=== PATIENT | female | born 1945 | race Caucasian/White ===

== ENCOUNTER → 2024-07-19 | Outpatient (CLI) | payer OTHER, SELFPAY ==
[2024-07-19 12:09] LABS: Collection Type, Urine Clean Catch
[2024-07-19 12:26] LABS: Basophils # (Auto) 0.1 Thou/mm3 (0.0-0.2); Basophils % (Auto) 1 % (0-2.5); Eosinophils # (Auto) 0.4 Thou/mm3 (0.0-0.5); Eosinophils % (Auto) 3 % (0-10); Hematocrit 36.9 % (36.0-46.0); Hemoglobin 12.7 g/dL (12.0-16.0); Immature Granulocytes % (Auto) 1 % (0-0); Immature Granulocytes Auto 0.05 Thou/mm3 (0.00-0.00); Lymphocytes # (Auto) 1.5 Thou/mm3 (1.0-4.8); Lymphocytes % (Auto) 15 % (10-50); Mean Corpuscular HGB Conc 34.4 g/dl (31.0-37.0); Mean Corpuscular Hemoglobin 30.6 pg (25.0-35.0); Mean Corpuscular Volume 89 fL (80-100); Monocytes % (Auto) 9 % (0-12); Neutrophils # (Auto) 7.6 Thou/mm3 (1.8-7.7); Neutrophils % (Auto) 72 % (37-80); Nucleated Red Blood Cell % 0 /100 WBC (0); Platelet Count 291 Thou/mm3 (140-440); RDW Standard Deviation 39.2 fL (36.4-46.3); Red Blood Count 4.15 Miln/mm3 (4.00-5.20); White Blood Count 10.6 Thou/mm3 (3.6-11.0)
[2024-07-19 12:31] LABS: Bilirubin,Urine Negative (Negative); Blood,Urine Negative (Negative); Clarity,Urine Clear (Clear/Hazy); Color,Urine Lt-Yellow (Lt Yel-Yel); Glucose, Urine Negative (Negative); Ketones,Urine Negative (Negative); Leukocyte Esterase,Urine Negative (Negative); Nitrite,Urine Negative (Negative); PH,Urine 6.5 (5.0-7.0); Protein,Urine Negative (Neg - Trace); RBC,Urine 1 /hpf (0-3); Specific Gravity,Urine 1.011 (1.001-1.035); Squamous Epithelial Cell,Urine < 1 /hpf (0-5); Urobilinogen,Urine Negative mg/dL (0.0-1.0); WBC,Urine < 1 /hpf (0-5)
[2024-07-19 12:43] LABS: Vitamin B12 1229 pg/mL (211-911); Vitamin D 25 Hydroxy Total 40.2 ng/mL (7.3-40.2)
[2024-07-19 12:44] LABS: Alanine Aminotransferase 23 U/L (10-49); Albumin, Serum 4.6 gm/dL (3.4-4.8); Albumin/Globulin Ratio 1.9 (1.2-2.2); Alkaline Phosphatase 114 U/L (46-116); Anion Gap 9 (7-16); Aspartate Amino Transferase 22 U/L (0-34); BUN/Creatinine Ratio 22 Ratio (12-20); Bilirubin,Total 0.5 mg/dL (0.3-1.2); Blood Urea Nitrogen 24 mg/dL (9-23); Calcium 9.6 mg/dL (8.3-10.6); Calcium (Corrected) 9.6 mg/dL (8.5-10.1); Carbon Dioxide 25.1 mMol/L (20.0-31.0); Cardiac Risk Estimate 2.3 RATIO (3.7-5.6); Chloride 104 mMol/L (98-107); Cholesterol 129 mg/dL (132-200); Creatinine (Component) 1.1 mg/dL (0.6-1.3); Globulin 2.4 gm/dL (2.3-3.5); Glucose 89 mg/dL (74-106); HDL Cholesterol 55 mg/dL (40-60); LDL Cholesterol,Calculated 63 mg/dL (0-130); Osmolality,Calculated 278 (275-295); Potassium 4.8 mMol/L (3.4-5.1); Sodium 138 mMol/L (136-145); Thyroid Stimulating Hormone 0.95 uIU/mL (0.55-4.78); Triglycerides 57 mg/dL (30-150); eGFR 52 See Note
== END | disposition home or self-care (01) ==
LOC: COPL 10:54
PROVIDERS: PCP Family Medicine; Referring Provider Physician Assistant; Visit Provider Physician Assistant
DX: Z00.00 Encounter for general adult medical examination without abnormal findings (principal); I10 Essential (primary) hypertension; E03.9 Hypothyroidism, unspecified; E78.5 Hyperlipidemia, unspecified
CPT/HCPCS: 36415; 80053; 80061; 81001; 82306; 82607; 84443; 85025

== ENCOUNTER → 2024-07-31 | Outpatient (CLI) | payer OTHER, SELFPAY ==
--- NOTE | 2024-07-31 | XR_ITS ---
Examination: Screening digital mammography, bilateral Computer aided detection 3-D breast Tomosynthesis, bilateral Date and time of exam: July 31, 2024 1114 hours Compared to mammograms dating to May 30, 2018 Indication: Screening Technique: Nonmagnified MLO, CC views of the breasts to been obtained, reconstructed from 3-D Tomosynthesis images. R2 computer aided detection program utilized for evaluation of suspicious masses and/or abnormal calcifications. 3-D Tomosynthesis images obtained. Findings: The breasts are heterogeneously dense, which may obscure small masses 8 mm focal asymmetry upper outer left breast anterior depth Benign calcifications Impression: BI-RADS Category 0: Incomplete: Need additional imaging evaluation 8 mm focal asymmetry upper outer left breast anterior depth Recommend follow-up spot tomographic views of this nodule as well as left breast sonography to complete the workup.
== END | disposition home or self-care (01) ==
LOC: CDIM 11:05
PROVIDERS: PCP Physician Assistant; Referring Provider Physician Assistant; Visit Provider Physician Assistant
DX: Z12.31 Encounter for screening mammogram for malignant neoplasm of breast (principal); R92.8 Other abnormal and inconclusive findings on diagnostic imaging of breast; N64.89 Other specified disorders of breast
CPT/HCPCS: 77063; 77067

== ENCOUNTER → 2024-09-07 | Outpatient (CLI) | payer OTHER, SELFPAY ==
--- NOTE | 2024-09-07 10:33 | XR_ITS ---
Examination: Sinus series 3 views Technique: Marcelle Reno lateral sinus series 3 views Exam date and time: August 30, 2024 1045 hrs. Indications: Sinus pressure and pain months Findings: Opacity in the frontal ethmoid air cells No retention cysts No fluid levels Impression: Chronic frontal ethmoid sinusitis
[2024-09-07 12:02] LABS: Basophils # (Auto) 0.1 Thou/mm3 (0.0-0.2); Basophils % (Auto) 1 % (0-2.5); Eosinophils # (Auto) 0.3 Thou/mm3 (0.0-0.5); Eosinophils % (Auto) 4 % (0-10); Hematocrit 39.6 % (36.0-46.0); Hemoglobin 13.2 g/dL (12.0-16.0); Immature Granulocytes % (Auto) 0 % (0-0); Immature Granulocytes Auto 0.03 Thou/mm3 (0.00-0.00); Lymphocytes # (Auto) 1.6 Thou/mm3 (1.0-4.8); Lymphocytes % (Auto) 20 % (10-50); Mean Corpuscular HGB Conc 33.3 g/dl (31.0-37.0); Mean Corpuscular Hemoglobin 29.5 pg (25.0-35.0); Mean Corpuscular Volume 88 fL (80-100); Monocytes # (Auto) 0.8 Thou/mm3 (0.0-0.8); Monocytes % (Auto) 10 % (0-12); Neutrophils # (Auto) 5.1 Thou/mm3 (1.8-7.7); Neutrophils % (Auto) 65 % (37-80); Nucleated Red Blood Cell % 0 /100 WBC (0); Platelet Count 269 Thou/mm3 (140-440); RDW Standard Deviation 41.6 fL (36.4-46.3); Red Blood Count 4.48 Miln/mm3 (4.00-5.20); White Blood Count 7.9 Thou/mm3 (3.6-11.0)
[2024-09-07 12:14] LABS: Alanine Aminotransferase 19 U/L (10-49); Albumin, Serum 4.5 gm/dL (3.4-4.8); Alkaline Phosphatase 88 U/L (46-116); Anion Gap 8 (7-16); Aspartate Amino Transferase 17 U/L (0-34); BUN/Creatinine Ratio 24 Ratio (12-20); Bilirubin,Total 0.4 mg/dL (0.3-1.2); Blood Urea Nitrogen 29 mg/dL (9-23); Calcium 9.5 mg/dL (8.3-10.6); Calcium (Corrected) 9.5 mg/dL (8.5-10.1); Carbon Dioxide 26.1 mMol/L (20.0-31.0); Chloride 106 mMol/L (98-107); Creatinine (Component) 1.2 mg/dL (0.6-1.3); Globulin 2.3 gm/dL (2.3-3.5); Glucose 81 mg/dL (74-106); Osmolality,Calculated 284 (275-295); Potassium 4.8 mMol/L (3.4-5.1); Sodium 140 mMol/L (136-145); Total Protein 6.8 gm/dL (5.7-8.2); eGFR 47 See Note
== END | disposition home or self-care (01) ==
LOC: CDIM 10:30 → COPL 10:51
PROVIDERS: Referring Provider Family Medicine; Visit Provider Family Medicine
DX: J01.00 Acute maxillary sinusitis, unspecified (principal); J32.2 Chronic ethmoidal sinusitis
CPT/HCPCS: 36415; 70220; 80053; 85025

== ENCOUNTER → 2024-09-25 | Outpatient (CLI) | payer OTHER, SELFPAY | END | disposition home or self-care (01) | LOC: SLDO 15:34 | PROVIDERS: PCP Physician Assistant; Referring Provider Physician Assistant; Visit Provider Physician Assistant | DX: J01.90 Acute sinusitis, unspecified (principal) | CPT/HCPCS: 87070; 87205 ==

== ENCOUNTER → 2024-11-07 | Outpatient (CLI) | payer OTHER, SELFPAY ==
--- NOTE | 2024-11-07 17:00 | XR_ITS ---
Examination: CT maxillofacial, without intravenous contrast. 2-D sagittal reconstructions. 3-D reconstructions. Date and time of exam:November 07, 2024 1717 hours INDICATIONS: Sinus pressure and pain 2 months CTDI: vol (mGy):7.44 DLP: (mGycm):111 Technique: Multiple axial images of maxillofacial region, 3.0 mm slice thickness. 2-D sagittal and coronal reconstructions. 3-D reconstructions. Low dose protocols were performed. One or more of the following dose reduction techniques were used; automated exposure control, adjustment of the mA and/or KV according to patient size, use of iterative reconstruction technique. Findings: Mucosal thickening up to 3 mm the frontal air cells Moderate mucosal thickening ethmoid air cells. No occlusion of estimated complexes Maxillary antra are clear Sphenoid air cells are clear Symmetrical mastoid aeration Negative for otitis media No nasopharyngeal mass Deviation nasal septum into the left 3 mm The optic globes exhibit symmetry Calcified left frontal convexity mass at least 21 x 18 mm IMPRESSION: Mild chronic sinusitis Calcified left frontal convexity mass, likely meningioma, 21 x 18 mm, recommend brain MRI MRA follow-up, pre and postcontrast.
== END | disposition home or self-care (01) ==
LOC: CCTX 16:56
PROVIDERS: PCP Family Medicine; Referring Provider Physician Assistant; Visit Provider Physician Assistant
DX: J32.9 Chronic sinusitis, unspecified (principal); R90.89 Other abnormal findings on diagnostic imaging of central nervous system
CPT/HCPCS: 70486

== ENCOUNTER → 2024-12-18 | Outpatient (CLI) | payer OTHER, SELFPAY ==
[2024-12-18 11:48] LABS: Alanine Aminotransferase 15 U/L (10-49); Albumin, Serum 4.2 gm/dL (3.4-4.8); Albumin/Globulin Ratio 1.9 (1.2-2.2); Alkaline Phosphatase 122 U/L (46-116); Anion Gap 10 (7-16); BUN/Creatinine Ratio 19 Ratio (12-20); Bilirubin,Total 0.5 mg/dL (0.3-1.2); Blood Urea Nitrogen 23 mg/dL (9-23); Calcium 9.2 mg/dL (8.3-10.6); Calcium (Corrected) 9.2 mg/dL (8.5-10.1); Carbon Dioxide 24.7 mMol/L (20.0-31.0); Cardiac Risk Estimate 2.3 RATIO (3.7-5.6); Chloride 107 mMol/L (98-107); Cholesterol 122 mg/dL (132-200); Creatinine (Component) 1.2 mg/dL (0.6-1.3); Globulin 2.2 gm/dL (2.3-3.5); Glucose 100 mg/dL (74-106); HDL Cholesterol 54 mg/dL (40-60); LDL Cholesterol,Calculated 54 mg/dL (0-130); Osmolality,Calculated 286 (275-295); Potassium 4.5 mMol/L (3.4-5.1); Sodium 142 mMol/L (136-145); Thyroid Stimulating Hormone 2.18 uIU/mL (0.55-4.78); Total Protein 6.4 gm/dL (5.7-8.2); Triglycerides 70 mg/dL (30-150); eGFR 46 See Note
== END | disposition home or self-care (01) ==
LOC: COPL 10:42
PROVIDERS: PCP Physician Assistant; Referring Provider Physician Assistant; Visit Provider Physician Assistant
DX: E03.9 Hypothyroidism, unspecified (principal); I10 Essential (primary) hypertension; E78.5 Hyperlipidemia, unspecified
CPT/HCPCS: 36415; 80053; 80061; 84443

== ENCOUNTER → 2025-01-18 | Outpatient (CLI) | payer OTHER, SELFPAY ==
--- NOTE | 2025-01-18 | XR_ITS ---
Examination:Right hip AP, lateral, AP pelvis 3 views Technique: Hip AP lateral, AP pelvis, 3 views Exam date and time:January 18, 2025 1158 hours INDICATIONS: Right hip pain months FINDINGS: Bilateral mild to moderate narrowing hip joints No right or left hip fracture or dislocation Numerous pelvic surgical clips IMPRESSION: Bilateral mild to moderate hip osteoarthritis.
== END | disposition home or self-care (01) ==
PROVIDERS: PCP Family Medicine; Referring Provider Physician Assistant; Visit Provider Physician Assistant
DX: M16.0 Bilateral primary osteoarthritis of hip (principal)
CPT/HCPCS: 73502

== ENCOUNTER → 2025-02-23 | Outpatient (CLI) | payer OTHER, SELFPAY ==
--- NOTE | 2025-02-23 14:45 | XR_ITS ---
Examination: MRI right hip without intravenous contrast. Date and time of exam: February 23, 2025 1524 hours Comparison September 15, 2022 INDICATIONS: Diagnosis bilateral hip osteoarthritis, greater trochanteric bursitis, hip pain years, right hip posterior buttock and hip pain radiating down the right leg joint clicking and weakness in the right leg and swelling 5 months Technique: Multiple MRI images of the right hip hip have been obtained T1 weighted coronal sections, TR 500, TE 12 Proton density coronal fat saturated images, TR 3000, TE 71 T2-weighted coronal images, 5850, TE 104 T1-weighted axial images, TR 521, TE 12 T2-weighted axial fat suppressed images, TR 5730, TE 103. Findings: [id number] bilateral hip osteoarthritis Right hip demonstrates no marrow edema or occult fracture or bone contusion or avascular necrosis Left hip demonstrates homogeneous marrow signal No avascular necrosis involving either hip Marrow signal in the pelvis unremarkable No definite labral tears IMPRESSION: No right hip occult fracture or bone contusion marrow edema or avascular necrosis [id number] bilateral hip osteoarthritis
--- NOTE | 2025-02-23 15:30 | XR_ITS ---
Examination: MRI lumbar spine without contrast Date and time of exam: February 23, 2025 1454 hours, comparison November 28, 2014 INDICATIONS: Intermittent low back pain radiating down the right leg to the foot, weakness in the right leg several years worse last 5 months Technique: Multiple MRI axial and sagittal sections lumbar spine. Sagittal T2-weighted images, TR 3500, TE 118 T1 weighted transverse sections, TR 688 T8.5, T2-weighted sagittal sections T1 weighted sagittal sections TR 621, TE 30 T2 axial sections, TR 4, 190, TE 84. Findings: Adequate alignment lumbar vertebral bodies on the lateral view No lumbar fracture. Normal marrow signal lumbar vertebral bodies. Moderate to advanced disc narrowing L2-L3, L3-L4 Diffuse lumbar disc desiccation No spondylolisthesis L5-S1 4 mm central lumbar disc bulge extending to the right and left intervertebral foramina with mild bilateral L5 ganglionic impression L4-L5 moderate to severe overall spinal stenosis, axial image 5, 6 mm several lumbar disc bulge, facet arthropathy and thickening of ligamenta flava circumferentially narrowing the thecal sac and producing severe right L4 ganglionic compression L3-L4 5 mm left foraminal disc bulge mild left L3 ganglionic compression L2-L3 small foraminal disc bulges 2 to 3 mm L1-L2 no disc protrusion IMPRESSION: L5-S1 4 mm central lumbar disc bulge with mild bilateral L5 ganglionic compression L4-L5 moderate to severe overall spinal stenosis including severe right L4 ganglionic compression
== END | disposition home or self-care (01) ==
LOC: SMRI 14:06
PROVIDERS: PCP Family Medicine; Referring Provider Physician Assistant; Visit Provider Physician Assistant
DX: M51.370 Other intervertebral disc degeneration, lumbosacral region with discogenic back pain only (principal); M51.360 Other intervertebral disc degeneration, lumbar region with discogenic back pain only; G95.20 Unspecified cord compression; M16.0 Bilateral primary osteoarthritis of hip
CPT/HCPCS: 72148; 73721

== ENCOUNTER → 2025-03-13 | Outpatient (CLI) | payer OTHER, SELFPAY ==
[2025-03-13 11:05] LABS: Alanine Aminotransferase 13 U/L (10-49); Albumin, Serum 4.7 gm/dL (3.4-4.8); Albumin/Globulin Ratio 2.0 (1.2-2.2); Alkaline Phosphatase 136 U/L (46-116); Anion Gap 15 (7-16); Aspartate Amino Transferase 24 U/L (0-34); BUN/Creatinine Ratio 11 Ratio (12-20); Bilirubin,Total 0.6 mg/dL (0.3-1.2); Blood Urea Nitrogen 13 mg/dL (9-23); Calcium 10.1 mg/dL (8.3-10.6); Calcium (Corrected) 10.1 mg/dL (8.5-10.1); Carbon Dioxide 20.8 mMol/L (20.0-31.0); Cardiac Risk Estimate 2.6 RATIO (3.7-5.6); Chloride 104 mMol/L (98-107); Cholesterol 138 mg/dL (132-200); Creatinine (Component) 1.2 mg/dL (0.6-1.3); Globulin 2.4 gm/dL (2.3-3.5); Glucose 84 mg/dL (74-106); HDL Cholesterol 53 mg/dL (40-60); LDL Cholesterol,Calculated 70 mg/dL (0-130); Osmolality,Calculated 278 (275-295); Potassium 4.4 mMol/L (3.4-5.1); Sodium 140 mMol/L (136-145); Thyroid Stimulating Hormone 2.43 uIU/mL (0.55-4.78); Total Protein 7.1 gm/dL (5.7-8.2); Triglycerides 73 mg/dL (30-150); eGFR 46 See Note
== END | disposition home or self-care (01) ==
LOC: COPL 09:45
PROVIDERS: PCP Family Medicine; Referring Provider Physician Assistant; Visit Provider Physician Assistant
DX: E03.9 Hypothyroidism, unspecified (principal); I10 Essential (primary) hypertension; E78.5 Hyperlipidemia, unspecified
CPT/HCPCS: 36415; 80053; 80061; 84443

== ENCOUNTER → 2025-06-03 | Outpatient (CLI) | payer OTHER, SELFPAY ==
[2025-06-03 14:54] LABS: Basophils # (Auto) 0.0 Thou/mm3 (0.0-0.2); Basophils % (Auto) 1 % (0-2.5); Eosinophils # (Auto) 0.6 Thou/mm3 (0.0-0.5); Eosinophils % (Auto) 8 % (0-10); Hematocrit 36.6 % (36.0-46.0); Hemoglobin 11.9 g/dL (12.0-16.0); Immature Granulocytes Auto 0.01 Thou/mm3 (0.00-0.00); Lymphocytes # (Auto) 1.3 Thou/mm3 (1.0-4.8); Lymphocytes % (Auto) 20 % (10-50); Mean Corpuscular HGB Conc 32.5 g/dl (31.0-37.0); Mean Corpuscular Hemoglobin 28.7 pg (25.0-35.0); Mean Corpuscular Volume 88 fL (80-100); Monocytes # (Auto) 0.6 Thou/mm3 (0.0-0.8); Monocytes % (Auto) 9 % (0-12); Neutrophils # (Auto) 4.1 Thou/mm3 (1.8-7.7); Neutrophils % (Auto) 62 % (37-80); Nucleated Red Blood Cell # 0.00 Thou/mm3 (0.00-0.00); Nucleated Red Blood Cell % 0 /100 WBC (0); Platelet Count 253 Thou/mm3 (140-440); RDW Standard Deviation 43.7 fL (36.4-46.3); Red Blood Count 4.14 Miln/mm3 (4.00-5.20); White Blood Count 6.6 Thou/mm3 (3.6-11.0)
[2025-06-03 15:05] LABS: Alanine Aminotransferase 14 U/L (10-49); Albumin, Serum 4.6 gm/dL (3.4-4.8); Albumin/Globulin Ratio 1.9 (1.2-2.2); Alkaline Phosphatase 120 U/L (46-116); Anion Gap 10 (7-16); Aspartate Amino Transferase 28 U/L (0-34); BUN/Creatinine Ratio 15 Ratio (12-20); Bilirubin,Total 0.3 mg/dL (0.3-1.2); Blood Urea Nitrogen 21 mg/dL (9-23); Calcium 9.0 mg/dL (8.3-10.6); Calcium (Corrected) 9.0 mg/dL (8.5-10.1); Carbon Dioxide 25.8 mMol/L (20.0-31.0); Chloride 104 mMol/L (98-107); Creatinine (Component) 1.4 mg/dL (0.6-1.3); Globulin 2.4 gm/dL (2.3-3.5); Glucose 84 mg/dL (74-106); Osmolality,Calculated 281 (275-295); Potassium 4.4 mMol/L (3.4-5.1); Sodium 140 mMol/L (136-145); Total Protein 7.0 gm/dL (5.7-8.2); eGFR 39 See Note
== END | disposition home or self-care (01) ==
LOC: COPL 13:11
PROVIDERS: PCP Family Medicine; Referring Provider Physician Assistant; Visit Provider Physician Assistant
DX: I10 Essential (primary) hypertension (principal); E78.5 Hyperlipidemia, unspecified; E03.9 Hypothyroidism, unspecified; D51.9 Vitamin B12 deficiency anemia, unspecified
CPT/HCPCS: 36415; 80053; 85025

== ENCOUNTER 2025-06-12 14:21 | Outpatient (RCR) | payer OTHER, SELFPAY ==
--- NOTE | 2025-06-12 15:18 | CTCFLWUP_ITS ---
Patient: TALA LU : 1945 Page 8 of 10 FOLLOW UP NOTE DATE OF SERVICE: 06/12/2025 NAME: TALA LU ACCOUNT: [id number] : 1945 AGE: 79 INTERVAL HISTORY: Patient doing well. Needs mammogram . new diagnosis of dementia . 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 History of cervix cancer treated with surgery followed by chemoradiation (1989). Status post surgery, chemotherapy as well as radiation therapy Mild dementia. REASON FOR TODAY?S VISIT: This is office follow-up visit. Ms. Lu is here at [facility]. She is clinically doing very well. Denies any complaints. Denies any cough, chest pain, abdominal pain or leg cramps. Denies any weight loss or loss of appetite. Ambulating well without any help. CT of chest abdomen pelvis done on 04/07/2023, no interval metastatic disease in the chest abdomen and pelvis, suspicious for 15mm mass lateral left breast, bilateral breast US recommended. Bilateral breast US, showed BIRAD category 3: probably benign finding, 6 month left breast US to document stability of left breast nodules, (05/30/2023). Bilateral mammogram screening, was BIRAD category II: benign findings, 1 year follow up recommended, (06/03/2023). Ms. Lu denies any fevers or night sweats. DATE OF DIAGNOSIS: STAGE/TNM: TREATMENT HISTORY: Care?Plan Start?Date Cycle Day Intent HISTORY OF PRESENT ILLNESS: PREVIOUS NOTE: Tala Lu is a 79-year-old ENG speaking female with following oncology history. June 1989: Patient was diagnosed with cervix cancer. July 29, 1989: Patient had surgery followed by chemotherapy and radiation at [facility] in [place]. 01/18/2019: Patient had noncontrast MRI of the right hip due to right hip pain. MRI showed a 2.7 cm oval mass in the right inguinal subcutaneous soft tissues suggesting an enlarged lymph node. Prominent intramuscular edema and blood within the right gluteus medius muscle consistent with high-grade strain. 03/29/2019:. MRI of the pelvis without contrast was again performed. It showed a 2.4 cm soft tissue mass in the right inguinal deep subcutaneous adipose tissue which may represent a pathologic lymph node. 05/16/2019: Patient had CT of the pelvis with IV contrast which showed a 24 mm enlarged right common femoral lymph node. 05/16/2019: She had CT-guided biopsy of the right groin lymph node. Pathology showed atypical lymphoid proliferation with no definite evidence of lymphoma's or other malignancy. Patient is referred to medical oncology for further work-up. 09/07/2019: PET CT scan?Enlarging hypermetabolic right common femoral artery lymph node, 28 mm compared to [address] pelvis May 16, 2019 This lymph node is amenable to CT-guided biopsy to confirm metastatic adenopathy Hypermetabolic bilateral thyroid lobes, clinical correlation advised Small pulmonary nodules right upper and left upper lobe on the current study are smaller compared to CT chest study November 09, 2013 09/10/2019: CT scan of the abdomen and pelvis with contrast?Enlarged right common femoral lymph node, 29 mm This node is amenable to rebiopsy as clinically warranted 12/14/2019: Right groin lymph node excision biopsy? 01/10/2020: CT scan of the abdomen and pelvis with contrast? 01/15/2020: Echocardiogram?LVEF 55-60%. 01/16/2020: Bone marrow biopsy and aspiration? 01/23/2020: Patient was seen at [place]? 08/16/2020: PET CT scan? 02/06/2021: shave biopsy of the right longo? 03/11/2021: CT scan of the chest abdomen and pelvis? 09/16/2021: Ultrasound of the thyroid gland?negative for nodules. 04/07/2023: CT chest abdomen and pelvis IMPRESSION: No interval metastatic disease in the chest abdomen or pelvis Suspicious for 15 mm mass lateral left breast, recommend bilateral breast sonography diagnostic mammography follow-up 05/30/2023: Bilateral breast US Findings: Sonographic images right breast 7:00 cyst 3 x 3 mm No solid nodules Sonographic images left breast 1:00 oval mass circumscribed 4 x 4 millimeter 3:00 oval mass lobular margins 7 x 5 mm Impression: BI-RADS Category 3: Probably benign findings 6 month left breast sonogram follow-up is needed to document stability of left breast nodules described above 06/03/2023: Bilateral breast mammogram screening Impression: BI-RADS category II: Benign Findings. Recommend 1 year follow-up mammogram. OTHER MEDICAL HISTORY/CONDITIONS: FAMILY HISTORY: SOCIAL HISTORY: CLIN NURSE SPEC HISTORY: MEDICATIONS: 1. acetaminophen - 500 mg 1 Capsule Daily 2. amLODIPine - 2.5 mg 1 tab Daily 3. atorvastatin - 40 mg 1 tab Daily 4. buPROPion HCL (smoking deter) - 150 mg 1.5 tab Twice a Day 5. Calcium 600 + D(3) - 600 mg-10 mcg (400 unit) 1 tab Daily 6. cephALEXin - 250 mg 1 Capsule Daily 7. donepezil - 10 mg 1 tab Daily 8. gabapentin - 600 mg 1 tab As needed 9. levothyroxine - 137 mcg 1 tab Daily 10. losartan - 100 mg 1 tab Daily 11. melatonin - 10 mg 1 Capsule Daily 12. memantine - 10 mg 1 tab Daily 13. pantoprazole - 40 mg 1 tab Daily 14. tiZANidine - 4 mg 1 Capsule Daily 15. Zanaflex - 4 mg 1 Capsule Daily Medications Last Reconciled by Tamera Faith MD on 06/12/2025 ALLERGIES: Sulfa (Sulfonamide Antibiotics) REVIEW OF SYSTEMS: A complete 14-point review of systems was performed and is negative except as noted in interval history. PHYSICAL EXAMINATION: VITAL SIGNS: PAIN: 2 - Mild pain ECOG Performance Status: 0 - Asymptomatic and fully active GENERAL APPEARANCE: Appears well, in no apparent distress, appropriately interactive. HEENT: Normocephalic, no temporal wasting, normal conjunctiva, no scleral icterus, normal hearing, lips without lesions, neck normal range of motion. CARDIOVASCULAR: Not assessed. PULMONARY: Normal respiratory effort, no respiratory distress or use of accessory muscles, speaking in full sentences, no tachypnea. EXTREMITIES: No pedal edema or cyanosis. SKIN: Normal skin appearance. NEUROLOGIC: Alert and oriented x4. PSHYCHIATRIC: Appropriate affect, mood normal, behavior normal, intact thought and speech. LABORATORY DATA: I have personally reviewed and interpreted each of the patient?s relevant lab tests, abnormal findings are below: Date 12/18/24 03/13/25 06/03/25 ??WHITE?BLOOD?COUNT?(Thou/mm3) ? ? 6.6 ??RED?BLOOD?COUNT?(Miln/mm3) ? ? 4.14 ??HEMOGLOBIN?(gm/dl) ? ? 11.9?L ??HEMATOCRIT?(%) ? ? 36.6 ??PLATELET?COUNT?(Thou/mm3) ? ? 253 ??NEUTROPHILS?%,?AUTO?(%) ? ? 62 ??LYMPH?%,?AUTO?(%) ? ? 20 ??NEUTROPHILS,?AUTO?(Thou/mm3) ? ? 4.1 ??GLUCOSE,RANDOM?(mg/dL) 100 84 84 ??BLOOD?UREA?NITROGEN?(mg/dL) 23 13 21 ??CREATININE?(mg/dL) 1.20 1.20 1.40?H ??SODIUM?(mmol/L) 142 140 140 ??POTASSIUM?(mmol/L) 4.5 4.4 4.4 ??CHLORIDE?(mmol/L) 107 104 104 ??CrCl?(CandG)?(ml/min) 41.81 41.81 35.84 ??AST/SGOT?(Unit/L) ? 24 28 ??ALT/SGPT?(Unit/L) 15 13 14 ??ALKALINE?PHOSPHATASE?(Unit/L) 122?H 136?H 120?H ??BILIRUBIN,?TOTAL?(mg/dL) 0.5 0.6 0.3 ??PROTEIN?TOTAL?(gm/dl) 6.4 7.1 7.0 ??ALBUMIN,?SERUM?(gm/dl) 4.2 4.7 4.6 ??GLOBULIN?(gm/dl) 2.2?L 2.4 2.4 ??ALBUMIN/GLOBULIN?RATIO 1.9 2.0 1.9 ??CALCIUM,?SERUM?(mg/dL) 9.2 10.1 9.0 ??CALCIUM?SERUM?(CORRECTED)?(mg/dL) 9.2 10.1 9.0 ASSESSMENT/PLAN: 1. Stage IA angioimmunoblastic T-cell lymphoma (AI TL). Status post excision. No clinical evidence of recurrence. No clinical evidence of recurrence of her T-cell lymphoma. Ultrasound of the thyroid gland done on 09/16/2021 was negative for nodules. . Ms. Lu history of mild dementia. CT scan of the chest abdomen and pelvis negative for recurrence of her T-cell lymphoma, did show suspicious 15 mm mass lateral left breast, recommend bilateral breast US diagnostic mammogram follow up (04/07/2023). Bilateral US of breast, 6 month follow up recommended to document stability of left breast nodules, (05/30/2023). Bilateral breast mammogram screening, benign findings, 1 year follow up recommended, (05/30/2023). 7. History of cervix cancer diagnosed in 1988 treated with surgery followed by chemoradiation. ORDERS: Order # Description [id number] 3D Mammogram Screening + Bilateral [id number] Comprehensive Metabolic Panel - 12 + CBC with Auto Diff + MD Follow Up 1 Year RETURN TO CLINIC: I reviewed the diagnosis, prognosis, and recommended treatment/procedure options with the patient (and/or their legal business center representative), including the potential benefits, risks, side effects and alternative therapies. We also discussed the option of no treatment and the possibility of clinical trial participation, if applicable. All questions were addressed, and they demonstrated understanding. They provided informed consent to proceed with the proposed plan of care. BILLING AND COMPLIANCE: I reviewed external records from providers outside my specialty as summarized above. I spent a total of 50 minutes on this patient?s care on the day of their visit excluding time spent related to any billed procedures. This time includes time spent with the patient as well as time spent documenting in the medical record, reviewing patients records and tests, obtaining history, placing orders, communicating with other healthcare professionals, counseling the patient, family or caregiver, and/or care coordination for the diagnoses above. Electronically Signed by: Salinas Frederick MD T: 3:16 PM CC: Cb? PCP: Jorge Alejo Referring: Jorge Alejo This document was completed utilizing speech recognition software. Grammatical errors, random word insertions, pronoun errors, and incomplete sentences are an occasional consequence of this system due to software limitations, ambient noise, and hardware issues. Any formal questions or concerns about the content, text or information contained within the body of this dictation should be directly addressed to the provider for clarification.
== END 2025-07-10 23:59 | disposition home or self-care (01) ==
LOC: SCTC 14:21
PROVIDERS: PCP Family Medicine; Referring Provider Family Medicine; Visit Provider Internal Medicine Hematology & Oncology
DX: Z08 Encounter for follow-up examination after completed treatment for malignant neoplasm (principal); Z85.72 Personal history of non-Hodgkin lymphomas; Z85.41 Personal history of malignant neoplasm of cervix uteri; N63.20 Unspecified lump in the left breast, unspecified quadrant; Z92.3 Personal history of irradiation; Z92.21 Personal history of antineoplastic chemotherapy
CPT/HCPCS: 99212; G0463